=== PATIENT | female | born 1965 | race Caucasian/White ===

== ENCOUNTER 2020-12-13 06:56 | Day surgery (SDC) | payer BC ==
[2020-12-12 14:34] VITALS: BMI 28.9
[2020-12-13 07:12] VITALS: PULSE 74
[2020-12-13] MEDS ORDERED: LIDOCAINE HCL/PF 2% SDV 5ML VIAL ONE (07:34)
[2020-12-13] MEDS ORDERED: PROPOFOL 20 ML ONE ×4 (07:34)
[2020-12-13 09:35] VITALS: BP 101/67; TEMP 98
== END 2020-12-13 09:39 | disposition home or self-care (01) ==
LOC: FASU-ENDO 06:56
PROVIDERS: ATTEND Internal Medicine Gastroenterology
PROC: 0DJD8ZZ Inspection of Lower Intestinal Tract, Via Natural or Artificial Opening Endoscopic (ICD-10-PCS; principal; 2020-12-13 08:26)
DX: Z12.11 Encounter for screening for malignant neoplasm of colon (principal); K57.30 Diverticulosis of large intestine without perforation or abscess without bleeding
CPT/HCPCS: 82962